=== PATIENT | male | born 1965 | race Caucasian/White ===

== ENCOUNTER 2025-01-20 15:29 | Emergency (ER) | payer OTHER ==
[2025-01-20] MEDS ORDERED: Sodium Chloride 0.9% 10 ML Syringe FLUSH PRN (17:49)
[2025-01-20] MEDS: Sodium Chloride 0.9% 1,000 ML IV SCH (18:15)
[2025-01-20] MEDS ORDERED: Propofol 200 MG/20 ML SDV ONE (18:37)
[2025-01-20] MEDS: HYDROmorphone 1 MG/ML Syringe IVPUSH ONE (18:46)
[2025-01-20] MEDS: Propofol 200 MG/20 ML SDV ONE (19:32)
== END 2025-01-20 19:35 ==
LOC: JP.ED 15:29
DX: S82.842A Displaced bimalleolar fracture of left lower leg, initial encounter for closed fracture (principal); Z88.0 Allergy status to penicillin; Z79.899 Other long term (current) drug therapy; Z86.16 Personal history of COVID-19; Z87.891 Personal history of nicotine dependence; X50.1XXA Overexertion from prolonged static or awkward postures, initial encounter
CPT/HCPCS: 01462; 27810; 73610; 76000; 96374; 99152; 99284; 99285; J1171; J2704; J7030; 73600-LT